=== PATIENT | female | born 1995 | race Caucasian/White ===

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

== ENCOUNTER 2017-02-23 21:08 | Emergency (ER) | payer OTHER ==
[~2017-02-23] VITALS: Ht 160 cm; Wt 67.5 kg
[~2017-02-23 21:08] MED LIST: ACET325T33 PO; CEPH-443 PO; PRENAT PO
[2017-02-23 21:10] VITALS: Ht 160 cm; Wt 67.5 kg
--- NOTE | 2017-02-23 22:55 | ERD ---
ER Documentation Chief Complaint Date/Time DATE: 02/23/17 TIME: 22:52 Chief Complaint scaterred body rash HPI This 21-year-old female reports sudden set of rash. symptoms started yesterday at home. pt reports symptom started on head and no total body. pt states that she woke pruritic with SOB. pt denies SOB now, pt used anti-itch cream, hx of hives in the past from Lavender denies new contacts ROS All systems reviewed and are negative except as per history of present illness. Medications Home Meds Active Scripts Methylprednisolone* (Medrol* DOSE PACK) 4 Mg/Dose-Pack Tab.ds.pk, 4 MG PO . DIRECTED for 7 Days, PACKET Prov:ESME,NAZIA 02/24/17 Diphenhydramine Hcl* (Benadryl*) 25 Mg Cap, 25 MG PO Q6, #30 CAP Prov:ESME,NAZIA 02/24/17 Acetaminophen* (Tylenol*) 325 Mg Tablet, 1 TAB PO Q6 Y for PAIN AND OR ELEVATED TEMP, #20 TAB Prov:DALY BACA PA-C 07/09/16 Cephalexin* (Keflex*) 500 Mg Capsule, 500 MG PO TID for 10 Days, #30 CAP Prov:DALY BACA PA-C 07/09/16 Reported Medications Multivit/Min/Fol Ac/Iron/Pren* ( S*) 1 Tab Tab, 1 TAB PO, TAB 09/07/15 Allergies Allergies: Coded Allergies: No Known Allergy (Unverified , 02/23/17) PMhx/Soc Medical and Surgical Hx: pt denies Medical Hx, pt denies Surgical Hx History of Surgery: No Anesthesia Reaction: No Hx Neurological Disorder: No Hx Respiratory Disorders: No Hx Cardiac Disorders: No Hx Psychiatric Problems: No Hx Miscellaneous Medical Probl: No Hx Alcohol Use: No Hx Substance Use: No Hx Tobacco Use: No Smoking Status: Never smoker Physical Exam Vitals Vital Signs Date Time Temp Pulse Resp B/P Pulse Ox O2 Delivery O2 Flow Rate FiO2 02/24/17 00:59 73 20 112/57 98 Room Air 02/23/17 21:10 98.0 82 20 130/58 98 Physical Exam Const: Well-nourished well-hydrated well-appearing no acute distress Head: Atraumatic Eyes: Normal Conjunctiva No periorbital edema ENT: Normal External Ears, Nose and Mouth.Mucous membranes moist, lips nonedematous, tongue without swelling, Neck: Full range of motion..~ No meningismus. Resp: Clear to auscultation bilaterally No rales wheezes or rhonchi, no respiratory distress Cardio: Regular rate and rhythm, no murmurs Abd: Skin: Scattered red raised discrete and confluent erythemic rash total body Back: Ext: No cyanosis, or edema Neur: Awake and alert Psych: Normal Mood and Affect Results 24 hrs Current Medications Medications (Trade) Dose Ordered Sig/Louie Route PRN Reason Start Time Stop Time Status Last Admin Dose Admin Diphenhydramine HCl (Benadryl) 25 mg ONCE ONCE PO 02/23/17 23:00 02/23/17 23:01 DC 02/23/17 23:14 Procedures/MDM This 21-year-old female presents to emergency department for evaluation of body rash. Patient has history of skin allergies, is allergic to lavender, reports she breaks out in hives. Patient denies any contact with lavender states that she symptoms started last night with an itchy scalp she went to bed and she woke up with a body rash. Rash is prurtic, patient states she felt short of breath in the morning but no longer feels short of breath. Has taken no over- the-counter Benadryl for symptomatic relief, has tried [id number] anti- itch cream with little relief of symptoms. Patient reports that she is breast- feeding, discussed treatment options, patient will be given Benadryl 25 mg p.o. Patient reassessed after 40 minutes with no change in symptoms. Prednisone offered. Patient encouraged if she uses the suggested prednisone to not breast- feed 4 hours after taking medication. Continue to use Benadryl. Follow-up with primary care physician for allergy testing. Return to emergency department for lip swelling, difficulty swallowing, or wheezing. Patient is stable with no new complaints during ER course, clinically there is no current evidence to suggest Anaphylactic shock, Escalera-Nelson syndrome, cellulitis or any other emergent condition appearing to require further evaluation or hospitalization. I feel the patient is stable for discharge at this time. I have discussed results, examination findings, the treatment plan with the patient and family present prior to discharge. Indications for emergent reevaluation, side effects of medication were also discussed. All questions were answered. Patient verbalizes understanding and agrees with plan of care. Departure Diagnosis: Primary Impression: Rash and other nonspecific skin eruption Condition: Good Patient Instructions: Self-Care for Skin Rashes [facility] Additional Instructions: Thank you for for coming to [facility] for your care today. Please ask your nurse or provider if you have questions about your care today and do not leave until all your questions have been answered. Please use any medications given as directed and follow-up with your doctor (or the doctor you were referred to) in the next 2-3 days. If you do not have a primary care doctor you may follow up at the [facility] (listed below). You may also use motrin and tylenol as needed for fever and/or pain unless instructed otherwise by your provider or nurse. Indications for more urgent follow-up have been discussed, but you may return to the Emergency Department at ANY time for any worrisome or worsening symptoms. If you have abdominal pain, please know that no test or exam you received is perfect and you should follow up within 8 hours for continued pain. If you had any imaging studies today, such as an X-Ray or CT Scan, these studies will be reviewed later by a radiologist. You will be called if there are important findings that were not identified today, so make sure the contact information you provided at registration is correct. If you received any narcotic pain control medicine today, such as Vicodin, Morphine or Dilaudid, your coordination and judgment may be affected for a number of hours. Please do not drive or operate heavy machinery, and you may want someone to assist you at home. If you were given a prescription for narcotic medication, be aware that it is very addictive- use sparingly and only if necessary. NAZIA VICTORIA Feb 23, 2017 22:55
[2017-02-23] MEDS ORDERED: DIPHENHYDRAMINE 25 MG CAP PO ONE (23:00)
[2017-02-24] MEDS ORDERED: BEN25 PO (00:45)
[2017-02-24] MEDS ORDERED: MED4DP PO (00:45)
[2017-02-24 00:59] VITALS: BP 112/57; PULSE 73; RESP 20
== END 2017-02-24 01:01 | disposition home or self-care (01) ==
LOC: FTE 21:08
DX: R21 Rash and other nonspecific skin eruption (principal)
CPT/HCPCS: Z7502; Z7610; 99283

== ENCOUNTER 2018-09-23 10:39 | Emergency (ER) | payer OTHER ==
[~2018-09-23] VITALS: Ht 160 cm; Wt 70.4 kg
[~2018-09-23 10:39] MED LIST changes: +BEN25 PO; +MED4DP PO
[2018-09-23 11:04] VITALS: BP 104/72; PULSE 90; RESP 20; Ht 160 cm; Wt 70.4 kg
--- NOTE | 2018-09-23 11:21 | ERD ---
ER Documentation Chief Complaint Chief Complaint FEVER, COUGH, COLD SYMPTOMS FOR 3 DAYS HPI 23-year-old female, recently healthy, presents the emergency department, complaining of worsening of upper respiratory symptoms for 3 days including subjective fever, cough and runny nose. ROS All systems reviewed and are negative except as per history of present illness. Medications Home Meds Active Scripts Fluticasone Propionate* (Fluticasone Propionate* Nasal) 50 Mcg/[place] - 16 Gm [place].susp, 2 SPRAYS NASAL DAILY, #1 BOTTLE TO EACH NOSTRIL Prov:CLEMENTE REYES MD 09/23/18 Cetirizine Hcl* (Zyrtec*) 10 Mg Capsule, 10 MG PO DAILY, #30 TAB.CHEW Prov:CLEMENTE REYES MD 09/23/18 Methylprednisolone* (Medrol* DOSE PACK) 4 Mg/Dose-Pack Tab.ds.pk, 4 MG PO . DIRECTED for 7 Days, PACKET Prov:ESME,NAZIA 02/24/17 Diphenhydramine Hcl* (Benadryl*) 25 Mg Cap, 25 MG PO Q6, #30 CAP Prov:ESME,NAZIA 02/24/17 Acetaminophen* (Tylenol*) 325 Mg Tablet, 1 TAB PO Q6 PRN for PAIN AND OR ELEVATED TEMP, #20 TAB Prov:DALY BACA PA-C 07/09/16 Cephalexin* (Keflex*) 500 Mg Capsule, 500 MG PO TID for 10 Days, #30 CAP Prov:DALY BACA PA-C 07/09/16 Reported Medications Multivit/Min/Fol Ac/Iron/Pren* ( S*) 1 Tab Tab, 1 TAB PO, TAB 09/07/15 Allergies Allergies: Coded Allergies: No Known Allergy (Unverified , 02/23/17) PMhx/Soc History of Surgery: No Anesthesia Reaction: No Hx Neurological Disorder: No Hx Respiratory Disorders: No Hx Cardiac Disorders: No Hx Psychiatric Problems: No Hx Miscellaneous Medical Probl: No Hx Alcohol Use: No Hx Substance Use: No Hx Tobacco Use: No Physical Exam Vitals Vital Signs Date Temp Pulse Resp B/P (MAP) Pulse Ox O2 O2 Flow FiO2 Time Delivery Rate 09/23/18 99.0 90 20 104/72 99 11:04 (83) Physical Exam Const: No acute distress Head: Atraumatic Eyes: Normal Conjunctiva ENT: Normal External Ears, Nose and Mouth. Neck: Full range of motion. No meningismus. Resp: Clear to auscultation bilaterally Cardio: Regular rate and rhythm, no murmurs Abd: Soft, non tender, non distended. Normal bowel sounds Skin: No petechiae or rashes Back: No midline or flank tenderness Ext: No cyanosis, or edema Neur: Awake and alert Psych: Normal Mood and Affect Procedures/MDM Vital signs stable, no respiratory distress, lung examination unremarkable. Di fferential diagnosis include but not limited to: Respiratory infection bacterial/viral/fungal. Asthma, pneumonitis, allergies, GERD. Less likely foreign body aspiration, cardiac related, aspiration pneumonia, malignancy. Physical examination and clinical presentation consistent most likely with viral syndrome with possible environmental allergies. During the ED course the patient remained stable, no new complaints. Clinical impression discussed with the patient who agrees with management. The patient is stable to be treated outpatient and will be discharged home. antibiotics not indicated at this time. some side effects of prescribed medications (headache, rash, nausea, vomiting, diarrhea, drowsiness, hypertension, interactions with other medications) were reviewed. The patient was instructed to follow up with the primary care provider in the next 48h. If symptoms persist, worsen or new symptoms develop, then patient should return to the ED immediately. Disclaimer: Inadvertent spelling and grammatical errors are likely due to EHR/dictation software use and do not reflect on the overall quality of patient care. Also, please note that the electronic time recorded on this note does not necessarily reflect the actual time of the patient encounter. Departure Diagnosis: Primary Impression: Upper respiratory symptom Additional Impression: Environmental and seasonal allergies Condition: Stable Additional Instructions: Thank you very much for allowing us to participate in your care. Your health and safety is our top priority at [facility]. Call your primary care doctor TOMORROW for an appointment during the next 2-4 days and bring all the information and medications prescribed. Have prescriptions filled and follow precisely the directions on the label. If the symptoms get worse and your provider is unavailable, return to the Emergency Department immediately. CLEMENTE REYES MD Sep 23, 2018 11:21
[2018-09-23] MEDS ORDERED: CETI10CA PO (11:53)
[2018-09-23] MEDS ORDERED: FLUT16SP17 NASAL (11:53)
== END 2018-09-23 12:10 | disposition home or self-care (01) ==
LOC: FTE 10:39
DX: J30.2 Other seasonal allergic rhinitis (principal); R09.89 Other specified symptoms and signs involving the circulatory and respiratory systems
CPT/HCPCS: 99282

== ENCOUNTER 2019-03-31 19:36 | Emergency (ER) | payer OTHER ==
[~2019-03-31] VITALS: Ht 162.6 cm; Wt 68.9 kg
[~2019-03-31 19:36] MED LIST changes: +CETI10CA PO; +DOXY1TAB3 PO; +FLUT16SP17 NASAL; +METO10TA92 PO
[2019-03-31 19:44] VITALS: Ht 162.6 cm; Wt 68.9 kg
[2019-03-31] MEDS ORDERED: ONDANSETRON 4 MG INJ IV STA (20:29)
[2019-03-31] MEDS ORDERED: SOD CHLORIDE 0.9% 1,000 ML IV ONE (20:30)
[2019-03-31 23:27] VITALS: BP 128/74; PULSE 78; RESP 16
== END 2019-03-31 23:27 | disposition home or self-care (01) ==
LOC: FTE 19:36
DX: O21.9 Vomiting of pregnancy, unspecified (principal); Z3A.11 11 weeks gestation of pregnancy
CPT/HCPCS: 76801; 80048; 81001; 84702; 85025; J2405; J7030; 36415; 81003; 96374